=== PATIENT | female | born 1970 | race Two or more races ===

== ENCOUNTER 2018-03-16 05:26 | Inpatient (IN) | payer OTHER ==
[2018-03-01 12:28] LABS: ALANINE AMINOTRANSFERASE 18 U/L (12-78); ALBUMIN 3.6 G/DL (3.4-5.0); ALBUMIN/GLOBULIN RATIO 0.9 (1.0-2.7); ALKALINE PHOSPHATASE 58 U/L (46-116); ANION GAP 5 mmol/L (5-15); ASPARTATE AMINO TRANSFERASE 16 U/L (15-37); BILIRUBIN,TOTAL 0.5 MG/DL (0.2-1.0); BLOOD UREA NITROGEN 13 mg/dL (7-18); CALCIUM 8.5 MG/DL (8.5-10.1); CARBON DIOXIDE 28 MMOL/L (21-32); CHLORIDE 104 MMOL/L (98-107); CREATININE 0.7 MG/DL (0.55-1.30); PHOSPHORUS 3.3 MG/DL (2.5-4.9); POTASSIUM 3.4 MMOL/L (3.5-5.1); SODIUM 137 MMOL/L (136-145)
[2018-03-01 12:40] LABS: BASOPHILS % (AUTO) 0.7 % (0.0-2.0); EOSINOPHILS % (AUTO) 1.7 % (0.0-3.0); HEMOGLOBIN 13.3 G/DL (12.0-16.0); LYMPHOCYTES % (AUTO) 16.8 % (20.0-45.0); MEAN CORPUSCULAR VOLUME 85 FL (80-99); NEUTROPHILS % (AUTO) 74.9 % (45.0-75.0); PLATELET COUNT 376 K/UL (150-450); RED CELL DISTRIBUTION WIDTH 12.4 % (11.6-14.8); WHITE BLOOD COUNT 8.4 K/UL (4.8-10.8)
[2018-03-01 12:47] LABS: APPEARANCE,URINE SLIGHTLY CLOUDY; BILIRUBIN, URINE NEGATIVE (NEGATIVE); GLUCOSE, URINE (UA) NEGATIVE (NEGATIVE); KETONES,URINE NEGATIVE (NEGATIVE); LEUKOCYTE ESTERASE ,URINE 2+ (NEGATIVE); NITRITE,URINE NEGATIVE (NEGATIVE); PH,URINE 5 (4.5-8.0); PROTEIN,URINE 1+ (NEGATIVE); UROBILINOGEN,URINE NORMAL MG/DL (0.0-1.0)
[2018-03-01 12:48] LABS: COLOR,URINE YELLOW
--- NOTE | 2018-03-01 13:07 | Diagnostic Imaging Report ---
Indication: Dyspnea Technique: 2 views of the chest Comparison: Findings: Lungs and pleural spaces are clear. The heart size is normal. There are degenerative changes of the thoracic spine Impression: Negative
[2018-03-16] VITALS (13 sets, daily range): BP systolic 111–132; BP diastolic 55–77
[~2018-03-16] VITALS: Ht 165.1 cm; Wt 88.0 kg
[2018-03-16] MEDS ORDERED: LISINOPRIL40 MG ORAL (06:09)
[2018-03-16] MEDS ORDERED: NORVASC5 MG ORAL (06:09)
[2018-03-16] MEDS ORDERED: LORAZEPAM1 MG ORAL (06:10)
[2018-03-16] MEDS ORDERED: MECLIZINE HCL25 M1 ORAL (06:11)
[2018-03-16] MEDS ORDERED: KENALOG 0.025%15 GM APPLIC (06:12)
[2018-03-16] MEDS ORDERED: ceFAZolin sod 2 GM in D5W 110 ML IVPB ONE (07:00)
[2018-03-16] MEDS ORDERED: Succinylcholine 20mg/ml 10ml vial ONE (07:10)
[2018-03-16] MEDS ORDERED: Zemuron 50mg/5ml Inj IV ONE (07:10)
[2018-03-16] MEDS ORDERED: fentaNYL 100 mcg/2 mL IV ONE (07:17)
[2018-03-16] MEDS ORDERED: Midazolam 2mg/2ml Inj ONE (07:17)
[2018-03-16] MEDS ORDERED: Lidocaine 1% MPF 10mg/ml 5ml ONE (07:24)
[2018-03-16] MEDS ORDERED: Vancomycin 1gm inj IVPB ONE (07:35)
[2018-03-16] MEDS ORDERED: Heparin 5000 units/ml inj ONE (07:35)
[2018-03-16] MEDS ORDERED: EPINEPHrine 1mg/1ml Amp ONE (07:35)
[2018-03-16] MEDS ORDERED: Thrombin 5000 units spray kit TOPIC ONE (07:36)
[2018-03-16] MEDS ORDERED: Lidocaine 1% Plain 30 ml INJ ONE (07:37)
[2018-03-16] MEDS ORDERED: Gelfoam Absorbable 1gm powder pkt TOPIC ONE (07:37)
[2018-03-16] MEDS ORDERED: Ropivacaine 5mg/ml Vial 30ml INJ ONE (07:37)
[2018-03-16] MEDS ORDERED: Gelfoam Size TOPIC ONE (07:37)
[2018-03-16] MEDS ORDERED: Thrombin 5000 units TOPIC ONE (07:37)
[2018-03-16] MEDS ORDERED: Bupivacaine 0.5% Inj 30 ml vial INJ ONE (07:37)
[2018-03-16] MEDS ORDERED: Bacitracin 50000 Units Vial ONE (07:37)
[2018-03-16] MEDS ORDERED: Neostigmine 1mg/ml 10ml Inj ONE (08:00)
[2018-03-16] MEDS ORDERED: LR 1000ml ONE (08:00)
[2018-03-16] MEDS ORDERED: Sterile Water Irrig 1000ml IRRIG ONE (08:00)
[2018-03-16] MEDS ORDERED: Propofol 1,000mg/ 100ml btl IV ONE (08:00)
[2018-03-16] MEDS ORDERED: NS Irrig 1000ml ONE (08:00)
[2018-03-16 08:20] LABS: APPEARANCE,URINE CLEAR; COLOR,URINE YELLOW; GLUCOSE, URINE (UA) NEGATIVE (NEGATIVE); KETONES,URINE NEGATIVE (NEGATIVE); PH,URINE 6 (4.5-8.0); PROTEIN,URINE NEGATIVE (NEGATIVE)
[2018-03-16 08:21] LABS: BILIRUBIN, URINE NEGATIVE (NEGATIVE); LEUKOCYTE ESTERASE ,URINE NEGATIVE (NEGATIVE); NITRITE,URINE NEGATIVE (NEGATIVE); UROBILINOGEN,URINE NORMAL MG/DL (0.0-1.0)
--- NOTE | 2018-03-16 08:46 | Pre-Procedure Note/Attestation ---
Pre-Procedure Note/Attestation Complete Prior to Procedure Procedure Narrative: Anterior/posterior fusion with decompression L5S1 Indications for Procedure Pre-Operative Diagnosis: L5s1 discopathy with radiculopathy Attestation I attest that I discussed the nature of the procedure; its benefits; risks and complications; and alternatives (and the risks and benefits of such alternatives ), prior to the procedure, with the patient (or the patient's legal customer counter representative). I attest that, if there was a reasonable possibility of needing a blood transfusion, the patient (or the patient's legal customer counter representative) was given the [facility] standardized written summary, pursuant to the [place] Blood Safety Act ([place] Health and Safety Code # 1645, as amended). I attest that I re-evaluated the patient just prior to the surgery and that there has been no change in the patient's H&P, except as documented below: Waldemar Ross MD Mar 16, 2018 08:46
--- NOTE | 2018-03-16 08:47 | Brief Operative Note ---
Immediate Post Operative Note Operative Note Pre-op Diagnosis: L5s1 discopathy with radiculopathy Procedure: L5S1 anterior posterior fusion with laminotomy/foraminotomy L side Post-op Diagnosis: same as pre-op Findings: consistent w/pre-op dx studies Surgeon: krishna Additional Surgeons: joey dos santos Anesthesiologist: chico Anesthesia: general Specimen: none Complications: yes Condition: stable Fluids: 1500 Estimated Blood Loss: volume - 150 Drains: hemovac Implant(s) used?: Yes - 4 web and ISP Waldemar Ross MD Mar 16, 2018 08:47
--- NOTE | 2018-03-16 09:10 | Anethesia Preoperative Eval ---
Anesthesia Pre-op PMH/ROS General Date of Evaluation: Mar 16, 2018 Time of Evaluation: 07:50 Anesthesiologist: Sienna ASA Score: ASA 2 Mallampati Score Class I : Soft palate, uvula, fauces, pillars visible Class II: Soft palate, uvula, fauces visible Class III: Soft palate, base of uvula visible Class IV: Only hard plate visible Mallampati Classification: Class II Surgeon: Cody Diagnosis: Lumbar radiculopathy Surgical Procedure: Anterior and posterior lumbar fusion Anesthesia History: none Family History: no anesthesia problems Allergies: Coded Allergies: No Known Allergies (Unverified , 03/16/18) Medications: see eMAR Past Medical History Cardiovascular: Reports: HTN; Denies: CAD, NM, valve dz, arrhythmia, other Pulmonary: Denies: asthma, COPD, ALLAN, other Gastrointestinal/Genitourinary: Reports: GERD; Denies: CRI, ESRD, other Neurologic/Psychiatric: Reports: other - chronic pain; Denies: dementia, CVA, depression/anxiety, TIA Endocrine: Denies: DM, hypothyroidism, steroids, other HEENT: Denies: cataract (L), cataract (R), glaucoma, [place] (L), [place] (R), other Hematology/Immune: Denies: anemia, DVT, bleeding disorder, other Musculoskeletal/Integumentary: Denies: OA, RA, DJD, DDD, edema, other Other: other - ovrweight PMH Narrative: as above PSxH Narrative: C-sector Anesthesia Pre-op Phys. Exam Physician Exam Last Vital Signs Date Time Temp Pulse Resp B/P (MAP) Pulse Ox O2 Delivery O2 Flow Rate FiO2 03/16/18 06:07 Room Air 03/16/18 05:58 97.9 83 18 127/71 (89) 97 97.9 Constitutional: NAD Neurologic: CN 2-12 intact Cardiovascular: RRR, no M/R/G Respiratory: CTA Gastrointestinal: S/NT/ND Airway Exam Mallampati Score: Class II MO: full Neck: flexible ROM: full Teeth: intact Dentures: no upper, no lower Anesthesia Pre-op A/P Labs see chart Urine Test Test 03/16/18 05:40 Urine HCG, Qualitative Negative (NEGATIVE) Studies Pre-op Studies: EKG - NSR Risk Assessment & Plan Assessment: ASA 2 Plan: GA with ETT, neuromonitoring Status Change Before Surgery: No Pre-Antibiotics Drug: Ancef 2 gr. Given Within 1 Hr of Incision: Yes Time Given: 08:46 Zechariah El MD Mar 16, 2018 09:10
[2018-03-16] MEDS ORDERED: Morphine Sulfate 10mg/ml Inj ONE (09:12)
[2018-03-16] MEDS ORDERED: Glycopyrrolate 0.2mg/ml 1ml Vial ONE (09:13)
[2018-03-16] MEDS ORDERED: Sodium Chloride 10ml vial INJ ONE (09:16)
[2018-03-16] MEDS ORDERED: Ketorolac 30mg Inj ONE (10:58)
[2018-03-16] MEDS ORDERED: Propofol 200mg/20ml IV ONE (11:22)
[2018-03-16] MEDS ORDERED: LR 1000ml 1,000 ML IVLG SCH (11:26)
[2018-03-16] MEDS ORDERED: Metoclopramide 10mg/2ml Inj IVP PRN (11:30)
[2018-03-16] MEDS ORDERED: Ketorolac 30mg Inj IV PRN (11:30)
[2018-03-16] MEDS ORDERED: fentaNYL 100 mcg/2 mL IV PRN (11:30)
[2018-03-16] MEDS ORDERED: Meperidine 50mg/ml Inj(FOR RIGORS ONLY) IV PRN (11:30)
[2018-03-16] MEDS ORDERED: DiphenhydrAMINE 50mg/ml Inj IVP PRN (11:30)
[2018-03-16] MEDS ORDERED: Midazolam 2mg/2ml Inj IVP PRN (11:30)
--- NOTE | 2018-03-16 12:57 | Immediate Post-Op Evaluation ---
Immediate Post-Op Evalulation Immediate Post-Op Evalulation Procedure: Anterior and posterior discectomy fusion L5-S1 Date of Evaluation: Mar 16, 2018 Time of Evaluation: 12:56 IV Fluids: 1500 Blood Products: none Estimated Blood Loss: 150 Urinary Output: 150 Blood Pressure Systolic: 117 Blood Pressure Diastolic: 59 Pulse Rate: 81 Respiratory Rate: 20 O2 Sat by Pulse Oximetry: 99 Temperature (Fahrenheit): 97.6 Pain Score (1-10): 1 Nausea: No Vomiting: No Complications none Patient Status: reacts, patent, extubated, none Hydration Status: adequate Zechariah El MD Mar 16, 2018 12:57
[2018-03-16] MEDS ORDERED: Acetaminophen (Non formulary) 100 ML IV ONE (13:00)
[2018-03-16] MEDS ORDERED: Milk of Magnesia 30ml Ud ORAL PRN (13:00)
[2018-03-16] MEDS ORDERED: D5 1/2NS 1,000 ML IV SCH (14:19)
--- NOTE | 2018-03-16 14:45 | Diagnostic Imaging Report ---
Indication: Left lower extremity pain and back pain, intraoperative Technique: Intraoperative images Comparison: none Findings: Initially image demonstrates surgical tool projected anterior to what is presumably the L5-S1 disc. Subsequent images demonstrate disc spacer at L5-S1 as well as anterior fusion hardware. Subsequent images demonstrate interspinous fusion at L5-S1 posteriorly. Impression: Intraoperative imaging, as described
[2018-03-16] MEDS: ceFAZolin sod 1 GM in D5W 55 ML IV SCH (16:56)
[2018-03-16] MEDS: Docusate 100mg cap ORAL SCH (17:06)
--- NOTE | 2018-03-16 17:15 | Operative Note - Dictated ---
DATE OF OPERATION: 03/16/2018 SURGEON: Waldemar Ross M.D. VASCULAR ACCESS SURGEON: Henri Coburn M.D. ANESTHESIOLOGIST: Zechariah El M.D. ANESTHESIA TYPE: General endotracheal anesthesia. PREOPERATIVE DIAGNOSIS: Discopathy L5-S1 with radiculopathy. POSTOPERATIVE DIAGNOSIS: Discopathy L5-S1 with radiculopathy. PROCEDURES: 1. Wide and radical diskectomy anteriorly at L5-S1. 2. Anterior interbody fusion using 4-WEB structural cage. 3. Use of local autograft and Signafuse allograft. 4. Use of fluoroscopy. 5. Neurodiagnostic monitoring. ESTIMATED BLOOD LOSS: 100 mL. COMPLICATIONS: None. FINDINGS: Good overall distraction and fixation at the L5-S1 level. RISK NOTE: The patient was advised of the risks and benefits of surgery to include, but not be limited to those of bleeding, infection, damage to nerves, vessels, tendons, anesthetic risk, allergic reaction, aspiration, and possibly . Pros, cons, risks, and benefits of surgery were discussed inclusive of vascular injury due to prior abdominal surgery and scarring as well as pseudarthrosis and possible need for re-surgery. The patient understood and wished to proceed. INDICATIONS: The patient is a very pleasant 47-year-old with intractable back pain and radiculopathic pain primarily down the left lower extremity. Surgical options were discussed after conservative care failed. She elected to proceed. OPERATIVE PROCEDURE IN DETAIL: The patient was taken to the operative suite after positive identification was made. A Bauman catheter was placed. Anesthesia was induced. She was positioned supine onto a radiolucent table. All bony prominences were well padded. The anterior retroperitoneal approach was performed by Dr. Henri Coburn, vascular surgeon, and this will be dictated separately. At this point, a needle was placed in the L5-S1 level and L5-S1 level was positively identified. A scalpel was then used to incise the anterior anulus. Endplates Levin and endplate curettes were then used to strip and separate the disc from the bony endplate. Interbody spacers were put into place to gradually distract the disk space. A curved curettes, straight curettes, pituitaries, and Kerrison rongeurs were used to remove the posterior osteophytes as well as the remnant disc material. At this point, the appropriate sized 10 mm 6-degree lordotic 4-WEB cage was chosen. It was centrally packed with autograft as well as Signafuse graft manufacturing project engineer. Once the spacer was put into place, x-rays demonstrated good overall distraction of the disk space as well as of the neural foramen with regards to indirect distraction. At this point, a small kickout/buttress plate was applied under fluoroscopic guidance. Once this was secured in place, the vascular structures were released from the retractor and noted to sit properly on the hardware without kinking of the vascular structures. The closure will then be dictated separately by Dr. Coburn. Sponge and needle counts were correct for this portion of the case. Neurodiagnostic monitoring remained stable and diminished both lower extremities, worst right than left. [facility] Wu Ross DR: TAY JOB#: [id number] CC:
--- NOTE | 2018-03-16 17:52 | Internal Med Progress Note ---
Subjective Date of Service: Mar 16, 2018 Physician Name Ike Hernandez Attending Physician Waldemar Ross MD Current Medications Medications (Trade) Dose Ordered Sig/Cleopatra Route PRN Reason Start Time Stop Time Status Last Admin Dose Admin Acetaminophen (Tylenol) 650 mg Q4H PRN ORAL headache or temp>101 03/16/18 13:00 04/15/18 12:59 Cefazolin Sodium 1 gm/Dextrose 55 ml @ 110 mls/hr Q8H IV 03/16/18 17:00 03/17/18 09:29 03/16/18 16:56 Dextrose/Sodium Chloride 1,000 ml @ 100 mls/hr Q10H IV 03/16/18 14:19 04/15/18 14:18 03/16/18 14:46 Docusate Sodium (Colace) 100 mg TWICE A DAY ORAL 03/16/18 18:00 04/15/18 17:59 03/16/18 17:06 Magnesium Hydroxide (Mom) 30 ml QIDPRN PRN ORAL Constipation 03/16/18 13:00 04/15/18 12:59 Ondansetron HCl (Zofran) 4 mg Q6H PRN IVP Nausea & Vomiting 03/16/18 13:00 04/15/18 12:59 Temazepam (Restoril) 15 mg HSPRN PRN ORAL Insomnia 03/16/18 13:00 03/23/18 12:59 Allergies: Coded Allergies: No Known Allergies (Unverified , 03/16/18) ROS Limited/Unobtainable: No Constitutional: Reports: no symptoms HEENT: Reports: no symptoms Cardiovascular: Reports: no symptoms Respiratory: Reports: no symptoms Gastrointestinal/Abdominal: Reports: no symptoms Genitourinary: Reports: no symptoms Neurologic/Psychiatric: Reports: no symptoms Subjective 47 YO F with lumbar Discopathy and radiculopathy. S/P disectomy and fusion L5- S1 on 03/16/18. Cover for Int Marissa Chand Objective Last Vital Signs Date Time Temp Pulse Resp B/P (MAP) Pulse Ox O2 Delivery O2 Flow Rate FiO2 03/16/18 16:45 97.5 64 19 125/70 (88) 100 97.5 03/16/18 14:37 Nasal Cannula 3.0 General Appearance: WD/WN, no apparent distress, alert, obese EENT: PERRL/EOMI, normal ENT inspection, TMs normal Neck: non-tender, normal alignment, supple Cardiovascular: normal peripheral pulses, normal rate, regular rhythm, no gallop/murmur, no JVD Respiratory/Chest: chest wall non-tender, lungs clear, normal breath sounds, no respiratory distress, no accessory muscle use Abdomen: normal bowel sounds, non tender, soft, no organomegaly, no mass Extremities: normal range of motion, non-tender Edema: trace edema Neurologic: radiator specialist II-XII grossly normal, no motor/sensory deficits Skin: normal pigmentation, warm/dry Laboratory Tests Test 03/16/18 05:40 Urine Color Yellow Urine Appearance Clear Urine pH 6 (4.5-8.0) Urine Specific [place] 1.015 (1.005-1.035) Urine Protein Negative (NEGATIVE) Urine Glucose (UA) Negative (NEGATIVE) Urine Ketones Negative (NEGATIVE) Urine Blood Negative (NEGATIVE) Urine Nitrite Negative (NEGATIVE) Urine Bilirubin Negative (NEGATIVE) Urine Urobilinogen Normal MG/DL (0.0-1.0) Urine Leukocyte Esterase Negative (NEGATIVE) Urine RBC 0 /HPF (0 - 2) Urine WBC 0 /HPF (0 - 2) Urine Squamous Epithelial Cells Few /LPF (NONE/OCC) Urine Bacteria Occasional /HPF (NONE) Urine Mucus Few /LPF (NONE/OCC) H Urine HCG, Qualitative Negative (NEGATIVE) Intake and Output 03/15/18 03/16/18 19:00 07:00 # Voids 1 Assessment/Plan Problem List: (1) Lumbar stenosis Assessment & Plan: S/P L5-S1 discectomy and fusion 03/16/18. see surgery note. (2) Radiculopathy of leg (3) HTN (hypertension) Assessment & Plan: Continue amlodipine (4) Obesity (5) Hypokalemia Assessment & Plan: replace potassium Status: not improved Ike Hernandez MD Mar 16, 2018 17:52
[2018-03-16] MEDS ORDERED: D5 1/2NS w/KCl 20mEq 1,000 ML IV SCH (19:00)
[2018-03-16] MEDS ORDERED: Morphine Sulfate 4mg/ml Inj (IV USE ONLY) IM SCH (19:04)
[2018-03-16] MEDS ORDERED: Lisinopril 20mg tab ORAL SCH (19:11)
[2018-03-16] MEDS ORDERED: Meclizine 25mg tab ORAL PRN (19:12)
--- NOTE | 2018-03-16 19:45 | Operative Note - Dictated ---
DATE OF OPERATION: 03/16/2018 SURGEON: Waldemar Ross M.D. PRECINCT POLICE CAPTAIN: None. ANESTHESIOLOGIST: Zechariah El M.D. ANESTHESIA TYPE: General endotracheal anesthesia. PREOPERATIVE DIAGNOSIS: Discopathy L5-S1 with advanced collapse status post anterior fusion with stabilization. POSTOPERATIVE DIAGNOSIS: Discopathy L5-S1 with advanced collapse status post anterior fusion with stabilization. PROCEDURE: 1. Posterior spinal fusion using interspinous stabilization link. 2. Posterior spinal fusion L5-S1 inter-facets and laminar overlay bone graft. 3. Left-sided laminectomy, foraminotomy, and decompression of nerve roots. 4. Use of fluoroscopy. 5. Use of operating microscope. 6. Neurodiagnostic monitoring. 7. Use of local autograft as well as allograft (Signafuse and [place]). ESTIMATED BLOOD LOSS: 50 mL. COMPLICATIONS: None. INDICATIONS: The patient is a pleasant 47-year-old with advanced discopathy and discogenic collapse, L5-S1, left lower extremity radiculopathic pain. She was advised with regards to her alternatives, anterior stabilization and diskectomy was recommended. Due to her body habitus, a posterior decompression and stabilization was recommended. The patient understood and wished to proceed. RISK NOTE: The patient was explained in detail risks, benefits of surgery to include, but not be limited to those of bleeding, infection, damage to nerves, vessels, tendons, anesthetic risk, allergic reaction, aspiration, and possibly . The patient understood specific risk of possible failure of hardware failure or possible need for surgery was discussed. The patient understood and wished to proceed. OPERATIVE PROCEDURE IN DETAIL: Under benefits of general anesthesia, the patient was turned prone onto a radiolucent Jorge frame. AP and lateral projections of lumbar spine confirmed proper positioning of the bone graft and lordosis. At this point, the back was prepped and draped in usual sterile fashion. A needle was placed and was felt to be the L5-S1 level and this was radiographically confirmed. The skin was infiltrated with lidocaine with epinephrine. A midline incision was carried out from L5 through S1. Subperiosteal dissection was carried out. A probe was placed under the lamina of L5 and the levels were once again reconfirmed. At this point, operating microscope was brought into place. The right side was first addressed. The facet was denuded of all soft tissue attachments and decorticated within the facet joint and overlying tissues. Local autograft bone as well as bone graft allograft substitute was placed within the facet joint. At this area, this right side was packed off. Attention was turned to the left side. Hemilaminectomy was performed at L5 and medial facetectomy at L5-S1. The ligamentum flavum was removed in a piecemeal fashion. The procedure was performed using standard technique by drilling out the lamina as well as using rongeurs as well as angled curettes. Once the ligamentum flavum was removed in a piecemeal fashion, the dural sac was identified. Generous facetectomy was performed. Meticulous hemostasis was then performed using bipolar. FloSeal was applied. At this point, the interspinous ligament between L5-S1 was removed and the edges of the spinous process was denuded of all soft tissue and decortication was achieved. An 8 mm interspinous L5-S1 StabiLink device was chosen and this was deployed within the interspinous region and clamped down and secured to the appropriate level. Please note that prior to placement of the device, copious irrigation was performed and meticulous hemostasis on the left was achieved using FloSeal. On the right side, decortication of the lamina was achieved. The local bone graft from the laminectomy was then mixed with Signafuse as well as some graft on and placed as an onlay onto the interlaminar region on the right side. The StabiLink device was deployed and secured to the spinous processes of L5 and S1 under microscopic visualization. It was then manually tightened and locked into place. Additional bone graft was placed within the ISP device. Fluoroscopic images confirmed good overall positioning of the ISP fusion device in both AP and lateral projections. Decision was then made to close. Fascia was repaired using #1 Vicryl. Subcutaneous closure using 2-0 Vicryl. Subfascial Hemovac drain was placed. Dermabond was applied. Sterile dressing was applied. The patient was then turned onto her back, awakened, extubated, and transferred to recovery room in stable condition. Sponge and needle counts were correct. Waldemar Ross M.D. DR: LAMIN JOB#: [id number] CC: MORAIMA
[2018-03-16] MEDS: LORazepam 0.5mg tab ORAL PRN (20:13)
[2018-03-16] MEDS: Triamcinolone 0.1% 15gm Cr TOPIC SCH (20:14)
[2018-03-16] MEDS: Lisinopril 20mg tab ORAL SCH (20:15)
--- NOTE | 2018-03-16 20:15 | Operative Note - Dictated ---
DATE OF OPERATION: 03/16/2018 VASCULAR SURGEON: Henri Coburn M.D. SPINE SURGEON: Waldemar Ross M.D. PREOPERATIVE DIAGNOSIS: Degenerative disk disease. POSTOPERATIVE DIAGNOSIS: Degenerative disk disease. PROCEDURE PERFORMED: Anterior retroperitoneal exposure of L5-S1 vertebral interspace. INDICATIONS: The patient is a very pleasant woman who is in my office prior to surgery. 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 She has no history of anterior spine surgery. No history of deep venous thrombosis or bleeding complications. She was made aware of the risks of surgery including possibly vascular injury, possible need for blood transfusion, and deep venous thrombosis. DESCRIPTION OF FINDINGS: A prior transverse incision was used. A left retroperitoneal approach was used. There was no peritoneal or ureteral violation. There is no vascular injury. Exposure of L5-S1 was obtained below the iliac bifurcation with retraction of left common iliac vessels superior and laterally. Fluoroscopy used to confirm appropriate level. Upon completion, the peritoneum and ureter were intact. The iliac vessels were intact. The blood loss was less than 100 mL . The patient has palpable femoral and pedal pulses and pulse oximetry and neurologic monitoring normal throughout the case. DESCRIPTION OF PROCEDURE: The patient was taken operating room. General anesthesia was used. Intravenous antibiotics were given. The patient's abdomen was prepped and draped. Appropriate time-out for procedure taken. A previous transverse incision was opened transversely superiorly. The anterior fascia was incised longitudinally in the midline. A plane was identified posterior to the left rectus abdominis developed posterolaterally towards the patient left. The retroperitoneal space entered below the arcuate line and the peritoneum and ureter mobilized towards the patient's right exposing the left common iliac artery and vein. Dissection was carried on the undersurface of the left common iliac vein. The middle sacral artery and vein were ligated using bipolar electrocautery and divided. There is a large internal iliac vein was identified and it was encircled using a 2-0 silk tie and triply ligated proximally distally with vascular clips. On completion, the retractors then removed. The peritoneum and ureter were intact. The iliac vessels are intact. Anterior fascia was then closed with #1 PDS in a running fashion and the skin and subcutaneous tissue were closed with 3-0 Vicryl and 4-0 Monocryl running subcuticular closure technique. Estimated blood loss less than 100 mL. Complications none. Henri Coburn M.D. DR: INGE JOB#: [id number] CC:
[2018-03-16] MEDS: Morphine Sulfate 4mg/ml Inj (IV USE ONLY) IM PRN (22:18)
[2018-03-17] VITALS: BP 118/71
[2018-03-17] MEDS: ceFAZolin sod 1 GM in D5W 55 ML IV SCH ×2 (00:33→08:57)
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
[2018-03-17] MEDS: D5 1/2NS w/KCl 20mEq 1,000 ML IV SCH ×4 (01:41→22:00)
[2018-03-17] MEDS: Morphine Sulfate 4mg/ml Inj (IV USE ONLY) IM PRN ×7 (03:01→21:16)
[2018-03-17 04:00] VITALS: BP 124/72
[2018-03-17 06:38] LABS: BASOPHILS % (AUTO) 0.3 % (0.0-2.0); EOSINOPHILS % (AUTO) 0.1 % (0.0-3.0); HEMATOCRIT 35.3 % (37.0-47.0); HEMOGLOBIN 11.5 G/DL (12.0-16.0); LYMPHOCYTES % (AUTO) 7.8 % (20.0-45.0); MEAN CORPUSCULAR VOLUME 86 FL (80-99); MONOCYTES % (AUTO) 7.1 % (1.0-10.0); NEUTROPHILS % (AUTO) 84.7 % (45.0-75.0); PLATELET COUNT 237 K/UL (150-450); RED BLOOD COUNT 4.09 M/UL (4.20-5.40); RED CELL DISTRIBUTION WIDTH 12.6 % (11.6-14.8); WHITE BLOOD COUNT 8.3 K/UL (4.8-10.8)
[2018-03-17 06:51] LABS: ANION GAP 6 mmol/L (5-15); BLOOD UREA NITROGEN 9 mg/dL (7-18); CALCIUM 8.1 MG/DL (8.5-10.1); CARBON DIOXIDE 29 MMOL/L (21-32); CHLORIDE 102 MMOL/L (98-107); CREATININE 0.8 MG/DL (0.55-1.30); POTASSIUM 4.5 MMOL/L (3.5-5.1); SODIUM 137 MMOL/L (136-145)
[2018-03-17 07:50] VITALS: BP 127/79
[2018-03-17] MEDS: Docusate 100mg cap ORAL SCH ×2 (08:08→18:01)
[2018-03-17] MEDS: Lisinopril 20mg tab ORAL SCH ×2 (08:09→16:55)
--- NOTE | 2018-03-17 08:28 | Orthopedic Spine Progress Note ---
Ortho Spine - Progress Note Subjective Symptoms: c/o post-op back pain, improved - leg symptoms resolved Objective Vital Signs: Last 24 Hour Vital Signs Date Time Temp Pulse Resp B/P (MAP) Pulse Ox O2 Delivery O2 Flow Rate FiO2 03/17/18 08:09 127/79 03/17/18 08:09 93 127/79 03/17/18 07:50 99.4 93 18 127/79 (95) 100 99.4 03/17/18 07:47 Nasal Cannula 2.0 03/17/18 04:00 99.0 87 18 124/72 (89) 100 99.0 03/17/18 00:00 98.7 81 18 118/71 (87) 98 98.7 03/16/18 21:00 Nasal Cannula 3.0 03/16/18 20:15 124/77 03/16/18 20:00 98.1 81 18 124/77 (93) 100 98.1 03/16/18 16:45 97.5 64 19 125/70 (88) 100 97.5 03/16/18 15:00 96.7 81 20 121/74 (90) 99 96.7 03/16/18 14:37 Nasal Cannula 3.0 03/16/18 14:00 97.6 73 18 111/56 (74) 98 97.6 03/16/18 14:00 Nasal Cannula 3.0 03/16/18 13:49 97.2 66 18 114/59 100 Nasal Cannula 3 97.2 03/16/18 13:30 64 19 111/55 100 Nasal Cannula 3 03/16/18 13:20 64 21 124/69 100 Nasal Cannula 3 03/16/18 13:18 97.6 03/16/18 13:10 65 18 127/65 100 Nasal Cannula 3 03/16/18 13:00 68 16 121/69 100 Simple Mask 6 03/16/18 12:57 207.7 81 20 99 03/16/18 12:55 72 13 132/56 100 Simple Mask 6 03/16/18 12:50 79 15 117/59 100 Simple Mask 6 03/16/18 12:44 97.6 82 20 112/57 100 Simple Mask 6 97.6 I&O: Intake and Output 03/16/18 03/17/18 19:00 07:00 Intake Total 1955 ml 805 ml Output Total 550 ml 470 ml Balance 1405 ml 335 ml Intake Oral 0 ml IV Total 1955 ml 805 ml Output Urine Total 400 ml 450 ml Drainage Total 0 ml 20 ml Estimated Blood Loss 150 ml Wound: clean, intact Drains: hemovac Neuro Status: normal Assessment Procedure Performed: L5S1 anterior posterior fusion with laminotomy/foraminotomy L side Plan Plan: PT, pain management, d/c drain Additional Comments: keep npo-- no Waldemar Mcallister MD Mar 17, 2018 08:28
[2018-03-17] MEDS: Triamcinolone 0.1% 15gm Cr TOPIC SCH ×2 (08:54→16:55)
[2018-03-17] MEDS ORDERED: Lisinopril 20mg tab ORAL SCH (09:00)
--- NOTE | 2018-03-17 10:49 | Internal Med Progress Note ---
Subjective Date of Service: Mar 17, 2018 Physician Name HernandezIke baptiste Attending Physician Waldemar Ross MD Current Medications Medications (Trade) Dose Ordered Sig/Cleopatra Route PRN Reason Start Time Stop Time Status Last Admin Dose Admin Acetaminophen (Tylenol) 650 mg Q4H PRN ORAL headache or temp>101 03/16/18 13:00 04/15/18 12:59 Acetaminophen/ Hydrocodone Bitart ([place] 10/325) 1 tab Q3H PRN ORAL Pain Scale (3-5) 03/16/18 19:15 03/23/18 19:14 Al Hydroxide/Mg Hydroxide (Mylanta) 30 ml Q6H PRN ORAL gerd 03/16/18 19:15 04/15/18 19:14 Amlodipine Besylate (Norvasc) 5 mg DAILY ORAL 03/17/18 09:00 04/16/18 08:59 03/17/18 08:09 Dextrose/ Electrolytes 1,000 ml @ 150 mls/hr Q6H40M IV 03/17/18 01:30 04/16/18 01:29 03/17/18 08:10 Diphenhydramine HCl (Benadryl) 25 mg Q6H PRN ORAL Itching 03/16/18 19:15 04/15/18 19:14 Docusate Sodium (Colace) 100 mg TWICE A DAY ORAL 03/16/18 18:00 04/15/18 17:59 03/17/18 08:08 Lisinopril (Prinivil) 20 mg BID ORAL 03/16/18 19:11 04/15/18 19:10 03/16/18 20:15 Lorazepam (Ativan) 0.5 mg Q6H PRN ORAL INSOMNIA OR SPASM 03/16/18 19:12 03/23/18 19:11 03/16/18 20:13 Meclizine HCl (Antivert) 25 mg Q8H PRN ORAL VERTIGO 03/16/18 19:12 04/15/18 19:11 Morphine Sulfate (Morphine Sulfate) 4 mg Q3H PRN IM Severe Breakthru Pain (>7) 03/16/18 19:04 03/23/18 19:03 03/17/18 09:25 Ondansetron HCl (Zofran) 4 mg Q4H PRN IVP Nausea & Vomiting 03/16/18 19:10 04/15/18 19:09 03/17/18 08:54 Pantoprazole (Protonix) 40 mg BEDTIME ORAL 03/16/18 21:00 04/15/18 20:59 03/16/18 20:13 Triamcinolone Acetonide (Kenalog) 1 applic BID TOPIC 03/16/18 19:29 04/15/18 19:28 03/17/18 08:54 Allergies: Coded Allergies: No Known Allergies (Unverified , 03/16/18) ROS Limited/Unobtainable: No Constitutional: Reports: no symptoms HEENT: Reports: no symptoms Cardiovascular: Reports: no symptoms Respiratory: Reports: no symptoms Gastrointestinal/Abdominal: Reports: no symptoms Genitourinary: Reports: no symptoms Neurologic/Psychiatric: Reports: no symptoms Subjective 47 YO F with lumbar Discopathy and radiculopathy. S/P disectomy and fusion L5- S1 on 03/16/18. Cover for Int John Paul-Dr Chand Objective Last Vital Signs Date Time Temp Pulse Resp B/P (MAP) Pulse Ox O2 Delivery O2 Flow Rate FiO2 03/17/18 09:55 99.4 03/17/18 08:09 127/79 03/17/18 08:09 93 03/17/18 07:50 18 100 03/17/18 07:47 Nasal Cannula 2.0 Laboratory Tests Test 03/17/18 05:55 White Blood Count 8.3 K/UL (4.8-10.8) Red Blood Count 4.09 M/UL (4.20-5.40) L Hemoglobin 11.5 G/DL (12.0-16.0) L Hematocrit 35.3 % (37.0-47.0) L Mean Corpuscular Volume 86 FL (80-99) Mean Corpuscular Hemoglobin 28.0 PG (27.0-31.0) Mean Corpuscular Hemoglobin Concent 32.5 G/DL (32.0-36.0) Red Cell Distribution Width 12.6 % (11.6-14.8) Platelet Count 237 K/UL (150-450) Mean Platelet Volume 6.2 FL (6.5-10.1) L Neutrophils (%) (Auto) 84.7 % (45.0-75.0) H Lymphocytes (%) (Auto) 7.8 % (20.0-45.0) L Monocytes (%) (Auto) 7.1 % (1.0-10.0) Eosinophils (%) (Auto) 0.1 % (0.0-3.0) Basophils (%) (Auto) 0.3 % (0.0-2.0) Sodium Level 137 MMOL/L (136-145) Potassium Level 4.5 MMOL/L (3.5-5.1) Chloride Level 102 MMOL/L (98-107) Carbon Dioxide Level 29 MMOL/L (21-32) Anion Gap 6 mmol/L (5-15) Blood Urea Nitrogen 9 mg/dL (7-18) Creatinine 0.8 MG/DL (0.55-1.30) Estimat Glomerular Filtration Rate > 60 mL/min (>60) Glucose Level 171 MG/DL (74-106) H Calcium Level 8.1 MG/DL (8.5-10.1) L Intake and Output 03/16/18 03/17/18 19:00 07:00 Intake Total 1955 ml 805 ml Output Total 550 ml 470 ml Balance 1405 ml 335 ml Intake Oral 0 ml IV Total 1955 ml 805 ml Output Urine Total 400 ml 450 ml Drainage Total 0 ml 20 ml Estimated Blood Loss 150 ml Objective General Appearance: WD/WN, no apparent distress, alert, obese EENT: PERRL/EOMI, normal ENT inspection, TMs normal Neck: non-tender, normal alignment, supple Cardiovascular: normal peripheral pulses, normal rate, regular rhythm, no gallop/murmur, no JVD Respiratory/Chest: chest wall non-tender, lungs clear, normal breath sounds, no respiratory distress, no accessory muscle use Abdomen: normal bowel sounds, non tender, soft, no organomegaly, no mass Extremities: normal range of motion, non-tender Edema: trace edema Neurologic: data solutions architect II-XII grossly normal, no motor/sensory deficits Skin: normal pigmentation, warm/dry Assessment/Plan Problem List: (1) Lumbar stenosis Assessment & Plan: S/P L5-S1 discectomy and fusion 03/16/18. see surgery note. (2) Radiculopathy of leg (3) HTN (hypertension) Assessment & Plan: Continue amlodipine (4) Obesity (5) Hypokalemia Assessment & Plan: Resolved. Continue IV fluids Status: progressing Assessment/Plan Discharge planning Ike Hernandez MD Mar 17, 2018 10:49
--- NOTE | 2018-03-17 11:13 | 48 Hour Post Anesthesia Eval ---
Post Anesthesia Evaluation Procedure: Anterior and posterior discectomy fusion L5-S1 Date of Evaluation: Mar 17, 2018 Time of Evaluation: 07:00 Blood Pressure Systolic: 124 0: 72 Pulse Rate: 87 Respiratory Rate: 18 Temperature (Fahrenheit): 99 O2 Sat by Pulse Oximetry: 100 Airway: patent Nausea: No Vomiting: No Pain Intensity: 0 Hydration Status: adequate Cardiopulmonary Status: at baseline Mental Status/LOC: patient returned to baseline Post-Anesthesia Complications: 0 Follow-up care needed: N/A - further care as per primary team Lorenza Mcnair MD Mar 17, 2018 11:13
[2018-03-17 11:42] VITALS: BP 96/51
[2018-03-17 15:51] VITALS: BP 110/70
[2018-03-17] MEDS ORDERED: D5 1/2NS w/KCl 20mEq 1,000 ML IV SCH (19:00)
[2018-03-17 20:00] VITALS: BP 105/70
--- NOTE | 2018-03-17 20:45 | Progress Note ---
DATE: 03/17/2018 ACUTE PAIN MANAGEMENT PHYSICIAN PROGRESS NOTE MEDICATIONS: Medication administration record reviewed. Medications include IV fluids, Colace, Protonix, Prinivil, triamcinolone eczema cream, and Norvasc. P.r.n. medications include Tylenol, morphine, Zofran, Benadryl, [place], Mylanta, Ativan and meclizine. LABORATORY STUDIES: From this morning, 03/17/2018, postoperative day #1 shows sodium 137, potassium 4.5, chloride 102, bicarbonate 29, BUN 9, creatinine 0.8 and glucose 171. Calcium 8.1. White count 8, hematocrit 35 and platelets 237. OBJECTIVE: VITAL SIGNS: Pain level 6/10 on the visual analog pain scale. Afebrile, pulse 88, respirations 18, and blood pressure 96/61. I spent over 60 minutes in consultation today. I saw the patient at bedside with her sister and son. Dr. Ross evaluated the patient earlier this morning and was pleased with the patient's progress after her extensive lumbar spine fusion surgery. The patient did ambulate greater than 300 feet with a front wheel walker with physical therapy today. She is in good spirits. She does have mild nausea and will remain NPO except for medications and sips, as she still has not yet passing flatus. She does have positive bowel sounds, but is not yet burping. I do have a high volume IV fluids 150 mL an hour for good hydration is a 47-year-old woman with no underlying cardiac disease. I will continue this fluid rate for now. Dr. Hernandez is following the patient's blood pressure and Internal Medicine issues. The patient has been compliant using her incentive spirometer. Postoperative hematocrit is within normal limits. The intramuscular morphine seems to be working adequately. I will continue the dosing q.3 h. p.r.n. Once the patient does start advancing her diet, she will work-in the oral hydrocodone tablets as tolerated. I also have dose of p.r.n. Ativan available, which the patient can use p.r.n. for spasm or insomnia. The output from the Hemovac drain was only 20 mL overnight. With nurse RNVioletta at the bedside, the patient was moved to the left lateral decubitus position. I examined the lumbar spine wound showing the dressing clean and dry. I removed the dressing bandage showing the incision line clean and dry with no evidence for erythema or exudate. The drain site also was clean and dry with the Hemovac drain taken off of suction, end-expiration, I personally removed the indwelling lumbar spine drain catheter. The tip was intact. I applied alcohol swab to the drain hole site. Finally, a sterile gauze was applied over the drain hole site covered by a 3 x 3 island border gauze dressing. The entire site was then covered with a 6 x 6 island border gauze dressing. There were no complications. Jd Riley M.D. DR: MONICA JOB#: [id number] CC:
[2018-03-18] VITALS: BP 108/65
[2018-03-18] MEDS: D5 1/2NS w/KCl 20mEq 1,000 ML IV SCH ×4 (00:23→18:38)
[2018-03-18] MEDS: Morphine Sulfate 4mg/ml Inj (IV USE ONLY) IM PRN ×3 (00:31→12:01)
[2018-03-18 04:00] VITALS: BP 107/66
[2018-03-18] MEDS: HYDROcodone/Acetamin 10/325 tab ORAL PRN ×4 (04:31→19:51)
[2018-03-18 07:28] LABS: BASOPHILS % (AUTO) 0.6 % (0.0-2.0); EOSINOPHILS % (AUTO) 0.6 % (0.0-3.0); HEMATOCRIT 31.7 % (37.0-47.0); HEMOGLOBIN 10.5 G/DL (12.0-16.0); LYMPHOCYTES % (AUTO) 8.5 % (20.0-45.0); MEAN CORPUSCULAR VOLUME 85 FL (80-99); MONOCYTES % (AUTO) 8.7 % (1.0-10.0); NEUTROPHILS % (AUTO) 81.6 % (45.0-75.0); PLATELET COUNT 192 K/UL (150-450); RED BLOOD COUNT 3.72 M/UL (4.20-5.40); RED CELL DISTRIBUTION WIDTH 12.6 % (11.6-14.8); WHITE BLOOD COUNT 9.1 K/UL (4.8-10.8)
[2018-03-18 07:49] LABS: ANION GAP 5 mmol/L (5-15); BLOOD UREA NITROGEN 6 mg/dL (7-18); CALCIUM 8.3 MG/DL (8.5-10.1); CARBON DIOXIDE 27 MMOL/L (21-32); CHLORIDE 104 MMOL/L (98-107); CREATININE 0.6 MG/DL (0.55-1.30); POTASSIUM 3.6 MMOL/L (3.5-5.1); SODIUM 136 MMOL/L (136-145)
[2018-03-18 08:00] VITALS: BP 115/59
[2018-03-18] MEDS: Docusate 100mg cap ORAL SCH ×2 (08:20→18:22)
[2018-03-18] MEDS: Lisinopril 20mg tab ORAL SCH ×2 (08:24→18:00)
--- NOTE | 2018-03-18 08:25 | Orthopedic Spine Progress Note ---
Ortho Spine - Progress Note Subjective Symptoms: c/o post-op back pain, c/o left leg pain - post thigh burning sensation Objective Vital Signs: Last 24 Hour Vital Signs Date Time Temp Pulse Resp B/P (MAP) Pulse Ox O2 Delivery O2 Flow Rate FiO2 03/18/18 08:00 98.5 95 18 115/59 (77) 98 98.5 03/18/18 08:00 98.5 95 18 115/59 (77) 98 98.5 03/18/18 04:00 98.6 93 18 107/66 (80) 98 98.6 03/18/18 02:30 98.0 03/18/18 00:36 100.8 03/18/18 00:00 100.3 101 18 108/65 (79) 98 100.3 03/17/18 21:00 Room Air 03/17/18 20:36 100 Nasal Cannula 2.0 03/17/18 20:36 Nasal Cannula 2.0 03/17/18 20:00 98.9 112 18 105/70 (82) 98 98.9 03/17/18 18:30 98.3 03/17/18 18:00 98.3 03/17/18 15:51 98.3 98 18 110/70 (83) 100 98.3 03/17/18 15:07 97.5 03/17/18 12:13 97.5 03/17/18 11:42 97.5 88 18 96/51 (66) 99 97.5 03/17/18 11:13 210.2 87 18 100 03/17/18 09:25 99.4 I&O: Intake and Output 03/17/18 03/18/18 19:00 07:00 Intake Total 1500 ml 437.5 ml Output Total 10 ml Balance 1490 ml 437.5 ml IV Total 1500 ml 437.5 ml Drainage Total 10 ml # Voids 2 4 Wound: clean, intact Drains: none Neuro Status: normal Assessment Procedure Performed: L5S1 anterior posterior fusion with laminotomy/foraminotomy L side Plan Plan: PT, pain management Additional Comments: advance diet Waldemar Ross MD Mar 18, 2018 08:25
[2018-03-18] MEDS: Triamcinolone 0.1% 15gm Cr TOPIC SCH ×2 (08:26→18:22)
[2018-03-18 12:00] VITALS: BP 141/95
--- NOTE | 2018-03-18 12:19 | Diagnostic Imaging Report ---
. Indication: Cough Technique: One view of the chest Comparison: 03/01/2018 Findings: Lungs and pleural spaces are clear. Heart size is normal Impression: No acute process
[2018-03-18] MEDS: cefTRIAXone 1 GM in D5W 55 ML IVPB SCH (13:47)
[2018-03-18 15:27] LABS: APPEARANCE,URINE CLEAR; BILIRUBIN, URINE NEGATIVE (NEGATIVE); COLOR,URINE PALE YELLOW; GLUCOSE, URINE (UA) NEGATIVE (NEGATIVE); KETONES,URINE NEGATIVE (NEGATIVE); LEUKOCYTE ESTERASE ,URINE NEGATIVE (NEGATIVE); NITRITE,URINE NEGATIVE (NEGATIVE); PH,URINE 6.5 (4.5-8.0); PROTEIN,URINE NEGATIVE (NEGATIVE); UROBILINOGEN,URINE NORMAL MG/DL (0.0-1.0)
[2018-03-18 16:00] VITALS: BP 131/68
--- NOTE | 2018-03-18 16:15 | Progress Note ---
DATE: 03/18/2018 ACUTE PAIN MANAGEMENT PHYSICIAN PROGRESS NOTE MEDICATIONS: Medication administration record reviewed. Medications include IV fluids, Colace, Protonix, lisinopril Kenalog cream, and Norvasc. P.r.n. medications include Tylenol, morphine, Zofran, Benadryl, Kerrick, Mylanta, Ativan and meclizine. LABORATORY STUDIES: From yesterday, 03/17/2018 shows white count 8, hematocrit 35 and platelets 237. Urinalysis from 03/16/2018 is negative. Chemistry from 03/17/2018 shows sodium 137, potassium 4.5, chloride 102, bicarbonate 29, BUN 9, creatinine 0.8 and glucose 171. Calcium 8.1. OBJECTIVE: VITAL SIGNS: Pain level 5/10 on the visual analog pain scale. T-max overnight was 100.8 degrees, current temperature afebrile, pulse 93, respirations 18, blood pressure 107/66 and oxygen saturation 98%. I spent over 60 minutes in consultation today. I saw the patient at bedside with her daughter after discussion with the nurse RN, Matty. I discussed the case with the Surgeon, Dr. Ross. The patient has been voiding urine well after the Bauman catheter was removed. There was some trace blood in the urine. However, this is likely secondary traumatic from the previous Bauman catheter insertion, the recent urinalysis was clean and negative. The patient did have a low-grade fever overnight. This is likely contributed with postoperative atelectasis. I did encourage continued incentive spirometer usage, as she does weigh 88 kg. The patient has been walking aggressively, resultingly her bowel function is returning somewhat. She started to burp, but still has not yet passed flatus. She will continue on IV fluids at 125 mL an hour, She will continue with her diet of NPO except for medications for now. Hopefully, she will start passing flatus so we can advance her diet. The patient continued to be quite hungry and denies any nausea symptoms at this time. The son did obtain my prescription for Kerrick for outpatient usage and he will try to locate a pharmacy to dispense the medicine in the outpatient setting. Jd Riley M.D. DR: MONICA JOB#: [id number] CC:
--- NOTE | 2018-03-18 19:26 | Internal Med Progress Note ---
Subjective Date of Service: Mar 18, 2018 Physician Name Ike Hernandez Attending Physician Waldemar Ross MD Current Medications Medications (Trade) Dose Ordered Sig/Cleopatra Route PRN Reason Start Time Stop Time Status Last Admin Dose Admin Acetaminophen (Tylenol) 650 mg Q4H PRN ORAL headache or temp>101 03/16/18 13:00 04/15/18 12:59 03/18/18 10:19 Acetaminophen/ Hydrocodone Bitart ([place] 10/325) 1 tab Q3H PRN ORAL Pain Scale (3-5) 03/16/18 19:15 03/23/18 19:14 03/18/18 16:26 Al Hydroxide/Mg Hydroxide (Mylanta) 30 ml Q6H PRN ORAL gerd 03/16/18 19:15 04/15/18 19:14 03/18/18 18:23 Amlodipine Besylate (Norvasc) 5 mg DAILY ORAL 03/17/18 09:00 04/16/18 08:59 03/17/18 08:09 Ceftriaxone Sodium 1 gm/ Dextrose 55 ml @ 110 mls/hr DAILY IVPB 03/18/18 13:00 03/25/18 12:59 03/18/18 13:47 Dextrose/ Electrolytes 1,000 ml @ 125 mls/hr Q8H IV 03/18/18 00:15 04/16/18 01:29 03/18/18 18:38 Diphenhydramine HCl (Benadryl) 25 mg Q6H PRN ORAL Itching 03/16/18 19:15 04/15/18 19:14 Docusate Sodium (Colace) 100 mg TWICE A DAY ORAL 03/16/18 18:00 04/15/18 17:59 03/18/18 18:22 Lisinopril (Prinivil) 20 mg BID ORAL 03/16/18 19:11 04/15/18 19:10 03/16/18 20:15 Lorazepam (Ativan) 0.5 mg Q6H PRN ORAL INSOMNIA OR SPASM 03/16/18 19:12 03/23/18 19:11 03/16/18 20:13 Meclizine HCl (Antivert) 25 mg Q8H PRN ORAL VERTIGO 03/16/18 19:12 04/15/18 19:11 Morphine Sulfate (Morphine Sulfate) 4 mg Q3H PRN IM Severe Breakthru Pain (>7) 03/16/18 19:04 03/23/18 19:03 03/18/18 12:01 Ondansetron HCl (Zofran) 4 mg Q4H PRN IVP Nausea & Vomiting 03/16/18 19:10 04/15/18 19:09 03/17/18 08:54 Pantoprazole (Protonix) 40 mg BEDTIME ORAL 03/16/18 21:00 04/15/18 20:59 03/17/18 21:13 Triamcinolone Acetonide (Kenalog) 1 applic BID TOPIC 03/16/18 19:29 04/15/18 19:28 03/18/18 18:22 Allergies: Coded Allergies: No Known Allergies (Unverified , 03/16/18) ROS Limited/Unobtainable: No Constitutional: Reports: chills, fever HEENT: Reports: no symptoms Cardiovascular: Reports: no symptoms Respiratory: Reports: no symptoms Gastrointestinal/Abdominal: Reports: no symptoms Genitourinary: Reports: no symptoms Neurologic/Psychiatric: Reports: no symptoms Subjective 47 YO F with lumbar Discopathy and radiculopathy. S/P disectomy and fusion L5- S1 on 03/16/18. Cover for Int Med-Dr Chand. Fever earlier today; currently afebrile. Objective Last Vital Signs Date Time Temp Pulse Resp B/P (MAP) Pulse Ox O2 Delivery O2 Flow Rate FiO2 03/18/18 18:00 130/74 03/18/18 16:00 97.4 90 18 68 97.4 03/18/18 08:48 Room Air 03/17/18 20:36 2.0 Laboratory Tests Test 03/18/18 06:23 03/18/18 13:30 White Blood Count 9.1 K/UL (4.8-10.8) Red Blood Count 3.72 M/UL (4.20-5.40) L Hemoglobin 10.5 G/DL (12.0-16.0) L Hematocrit 31.7 % (37.0-47.0) L Mean Corpuscular Volume 85 FL (80-99) Mean Corpuscular Hemoglobin 28.2 PG (27.0-31.0) Mean Corpuscular Hemoglobin Concent 33.1 G/DL (32.0-36.0) Red Cell Distribution Width 12.6 % (11.6-14.8) Platelet Count 192 K/UL (150-450) Mean Platelet Volume 6.6 FL (6.5-10.1) Neutrophils (%) (Auto) 81.6 % (45.0-75.0) H Lymphocytes (%) (Auto) 8.5 % (20.0-45.0) L Monocytes (%) (Auto) 8.7 % (1.0-10.0) Eosinophils (%) (Auto) 0.6 % (0.0-3.0) Basophils (%) (Auto) 0.6 % (0.0-2.0) Sodium Level 136 MMOL/L (136-145) Potassium Level 3.6 MMOL/L (3.5-5.1) Chloride Level 104 MMOL/L (98-107) Carbon Dioxide Level 27 MMOL/L (21-32) Anion Gap 5 mmol/L (5-15) Blood Urea Nitrogen 6 mg/dL (7-18) L Creatinine 0.6 MG/DL (0.55-1.30) Estimat Glomerular Filtration Rate > 60 mL/min (>60) Glucose Level 131 MG/DL (74-106) H Calcium Level 8.3 MG/DL (8.5-10.1) L Urine Color Pale yellow Urine Appearance Clear Urine pH 6.5 (4.5-8.0) Urine Specific Sneads 1.005 (1.005-1.035) Urine Protein Negative (NEGATIVE) Urine Glucose (UA) Negative (NEGATIVE) Urine Ketones Negative (NEGATIVE) Urine Blood 5+ (NEGATIVE) H Urine Nitrite Negative (NEGATIVE) Urine Bilirubin Negative (NEGATIVE) Urine Urobilinogen Normal MG/DL (0.0-1.0) Urine Leukocyte Esterase Negative (NEGATIVE) Urine RBC 0-2 /HPF (0 - 2) Urine WBC 0-2 /HPF (0 - 2) Urine Squamous Epithelial Cells Moderate /LPF (NONE/OCC) H Urine Bacteria Occasional /HPF (NONE) Microbiology Date/Time Source Procedure Growth Status 03/16/18 06:29 Nasal Nares MRSA Culture - Final NO METHICILLIN RESISTANT STAPH AUREUS... Complete Intake and Output 03/17/18 03/18/18 19:00 07:00 Intake Total 1500 ml 437.5 ml Output Total 10 ml Balance 1490 ml 437.5 ml IV Total 1500 ml 437.5 ml Drainage Total 10 ml # Voids 2 4 Objective General Appearance: WD/WN, no apparent distress, alert, obese EENT: PERRL/EOMI, normal ENT inspection, TMs normal Neck: non-tender, normal alignment, supple Cardiovascular: normal peripheral pulses, normal rate, regular rhythm, no gallop/murmur, no JVD Respiratory/Chest: chest wall non-tender, lungs clear, normal breath sounds, no respiratory distress, no accessory muscle use Abdomen: normal bowel sounds, non tender, soft, no organomegaly, no mass Extremities: normal range of motion, non-tender Edema: trace edema Neurologic: tin flopper II-XII grossly normal, no motor/sensory deficits Skin: normal pigmentation, warm/dry Assessment/Plan Problem List: (1) Lumbar stenosis Assessment & Plan: S/P L5-S1 discectomy and fusion 03/16/18. see surgery note. (2) Radiculopathy of leg (3) HTN (hypertension) Assessment & Plan: Continue amlodipine (4) Obesity (5) Hypokalemia Assessment & Plan: Resolved. 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 Start ceftriaxone. Status: not improved Assessment/Plan Discharge planning Ike Hernandez MD Mar 18, 2018 19:26
[2018-03-18 20:00] VITALS: BP 140/73
[2018-03-18] MEDS: LORazepam 0.5mg tab ORAL PRN (23:57)
[2018-03-19] VITALS: BP 114/71
[2018-03-19 04:00] VITALS: BP 110/76
[2018-03-19 07:48] LABS: BASOPHILS % (AUTO) 0.5 % (0.0-2.0); EOSINOPHILS % (AUTO) 1.9 % (0.0-3.0); HEMATOCRIT 31.8 % (37.0-47.0); HEMOGLOBIN 10.7 G/DL (12.0-16.0); LYMPHOCYTES % (AUTO) 13.5 % (20.0-45.0); MEAN CORPUSCULAR VOLUME 84 FL (80-99); MONOCYTES % (AUTO) 10.1 % (1.0-10.0); PLATELET COUNT 206 K/UL (150-450); RED BLOOD COUNT 3.79 M/UL (4.20-5.40); WHITE BLOOD COUNT 6.3 K/UL (4.8-10.8)
[2018-03-19 08:00] VITALS: BP 112/67
[2018-03-19 08:00] LABS: ANION GAP 5 mmol/L (5-15); BLOOD UREA NITROGEN 7 mg/dL (7-18); CALCIUM 8.3 MG/DL (8.5-10.1); CARBON DIOXIDE 31 MMOL/L (21-32); CHLORIDE 104 MMOL/L (98-107); CREATININE 0.6 MG/DL (0.55-1.30); POTASSIUM 3.8 MMOL/L (3.5-5.1); SODIUM 140 MMOL/L (136-145)
--- NOTE | 2018-03-19 08:57 | Orthopedic Spine Progress Note ---
Ortho Spine - Progress Note Subjective Symptoms: c/o post-op back pain, improved - as compared to pre-op Objective Vital Signs: Last 24 Hour Vital Signs Date Time Temp Pulse Resp B/P (MAP) Pulse Ox O2 Delivery O2 Flow Rate FiO2 03/19/18 08:31 98 112/67 03/19/18 08:12 Room Air 03/19/18 08:00 112/67 (82) 03/19/18 08:00 98.7 98 18 98.7 03/19/18 04:00 97.6 87 18 110/76 (87) 99 97.6 03/19/18 01:30 99.0 03/19/18 00:00 100.4 104 20 114/71 (85) 97 100.4 03/18/18 23:57 100.4 03/18/18 21:00 Room Air 03/18/18 20:08 Nasal Cannula 2.0 28 03/18/18 20:08 97 Nasal Cannula 2.0 28 03/18/18 20:00 99.7 112 20 140/73 (95) 99 99.7 03/18/18 18:00 130/74 03/18/18 16:00 97.4 90 18 131/68 (89) 68 97.4 03/18/18 14:42 97.8 97.8 03/18/18 12:00 101.2 109 18 141/95 (110) 100 101.2 03/18/18 11:05 101.4 101.4 03/18/18 10:19 102.5 03/18/18 10:15 102.5 102.5 I&O: Intake and Output 03/18/18 03/19/18 19:00 07:00 Intake Total 1660 ml 480 ml Balance 1660 ml 480 ml Intake Oral 480 ml 480 ml IV Total 1180 ml # Voids 3 4 Wound: clean, intact Drains: none Neuro Status: normal Assessment Procedure Performed: L5S1 anterior posterior fusion with laminotomy/foraminotomy L side Plan Plan: PT, pain management, discharge plan Additional Comments: monitor temp- if afeb today, ok to Waldemar Ley MD Mar 19, 2018 08:57
[2018-03-19] MEDS: Docusate 100mg cap ORAL SCH ×2 (09:17→17:43)
[2018-03-19] MEDS: cefTRIAXone 1 GM in D5W 55 ML IVPB SCH (09:17)
[2018-03-19] MEDS: Triamcinolone 0.1% 15gm Cr TOPIC SCH ×2 (09:18→17:44)
[2018-03-19] MEDS: Lisinopril 20mg tab ORAL SCH ×2 (09:18→17:43)
[2018-03-19] MEDS ORDERED: Magnesium Citrate Liq Btl ORAL ONE (10:00)
[2018-03-19] MEDS: HYDROcodone/Acetamin 10/325 tab ORAL PRN (11:07)
[2018-03-19 12:00] VITALS: BP 125/77
[2018-03-19 16:00] VITALS: BP 110/67
--- NOTE | 2018-03-19 16:03 | Internal Med Progress Note ---
Subjective Physician Name Rajeev Chand Attending Physician Waldemar Ross MD Current Medications Medications (Trade) Dose Ordered Sig/Cleopatra Route PRN Reason Start Time Stop Time Status Last Admin Dose Admin Acetaminophen (Tylenol) 650 mg Q4H PRN ORAL headache or temp>101 03/16/18 13:00 04/15/18 12:59 03/18/18 23:57 Acetaminophen/ Hydrocodone Bitart ([place] 10/325) 1 tab Q3H PRN ORAL Pain Scale (3-5) 03/16/18 19:15 03/23/18 19:14 03/19/18 11:07 Al Hydroxide/Mg Hydroxide (Mylanta) 30 ml Q6H PRN ORAL gerd 03/16/18 19:15 04/15/18 19:14 03/18/18 18:23 Amlodipine Besylate (Norvasc) 5 mg DAILY ORAL 03/17/18 09:00 04/16/18 08:59 03/17/18 08:09 Bisacodyl (Dulcolax) 10 mg Q12H PRN RECTAL Constipation 03/19/18 09:15 04/18/18 09:14 03/19/18 11:07 Ceftriaxone Sodium 1 gm/ Dextrose 55 ml @ 110 mls/hr DAILY IVPB 03/18/18 13:00 03/25/18 12:59 03/19/18 09:17 Diphenhydramine HCl (Benadryl) 25 mg Q6H PRN ORAL Itching 03/16/18 19:15 04/15/18 19:14 Docusate Sodium (Colace) 100 mg TWICE A DAY ORAL 03/16/18 18:00 04/15/18 17:59 03/19/18 09:17 Lisinopril (Prinivil) 20 mg BID ORAL 03/16/18 19:11 04/15/18 19:10 03/19/18 09:18 Lorazepam (Ativan) 0.5 mg Q6H PRN ORAL INSOMNIA OR SPASM 03/16/18 19:12 03/23/18 19:11 03/18/18 23:57 Meclizine HCl (Antivert) 25 mg Q8H PRN ORAL VERTIGO 03/16/18 19:12 04/15/18 19:11 Morphine Sulfate (Morphine Sulfate) 4 mg Q3H PRN IM Severe Breakthru Pain (>7) 03/16/18 19:04 03/23/18 19:03 03/18/18 12:01 Ondansetron HCl (Zofran) 4 mg Q4H PRN IVP Nausea & Vomiting 03/16/18 19:10 04/15/18 19:09 03/17/18 08:54 Pantoprazole (Protonix) 40 mg BEDTIME ORAL 03/16/18 21:00 04/15/18 20:59 03/18/18 20:36 Triamcinolone Acetonide (Kenalog) 1 applic BID TOPIC 03/16/18 19:29 04/15/18 19:28 03/19/18 09:18 Allergies: Coded Allergies: No Known Allergies (Unverified , 03/16/18) Subjective awake, alert, responsive, NAD, C/O constipation Objective Last Vital Signs Date Time Temp Pulse Resp B/P (MAP) Pulse Ox O2 Delivery O2 Flow Rate FiO2 03/19/18 12:06 98.7 03/19/18 12:00 100 20 125/77 (93) 100 03/19/18 08:30 Nasal Cannula 2.0 28 Laboratory Tests Test 03/19/18 06:40 White Blood Count 6.3 K/UL (4.8-10.8) Red Blood Count 3.79 M/UL (4.20-5.40) L Hemoglobin 10.7 G/DL (12.0-16.0) L Hematocrit 31.8 % (37.0-47.0) L Mean Corpuscular Volume 84 FL (80-99) Mean Corpuscular Hemoglobin 28.4 PG (27.0-31.0) Mean Corpuscular Hemoglobin Concent 33.7 G/DL (32.0-36.0) Red Cell Distribution Width 12.0 % (11.6-14.8) Platelet Count 206 K/UL (150-450) Mean Platelet Volume 6.5 FL (6.5-10.1) Neutrophils (%) (Auto) 74.0 % (45.0-75.0) Lymphocytes (%) (Auto) 13.5 % (20.0-45.0) L Monocytes (%) (Auto) 10.1 % (1.0-10.0) H Eosinophils (%) (Auto) 1.9 % (0.0-3.0) Basophils (%) (Auto) 0.5 % (0.0-2.0) Sodium Level 140 MMOL/L (136-145) Potassium Level 3.8 MMOL/L (3.5-5.1) Chloride Level 104 MMOL/L (98-107) Carbon Dioxide Level 31 MMOL/L (21-32) Anion Gap 5 mmol/L (5-15) Blood Urea Nitrogen 7 mg/dL (7-18) Creatinine 0.6 MG/DL (0.55-1.30) Estimat Glomerular Filtration Rate > 60 mL/min (>60) Glucose Level 101 MG/DL (74-106) Calcium Level 8.3 MG/DL (8.5-10.1) L Microbiology Date/Time Source Procedure Growth Status 03/18/18 13:30 Urine,Clean Catch Urine Culture - Preliminary NO GROWTH Resulted Intake and Output 03/18/18 03/19/18 19:00 07:00 Intake Total 1660 ml 480 ml Balance 1660 ml 480 ml Intake Oral 480 ml 480 ml IV Total 1180 ml # Voids 3 4 Objective General: No acute distress, awake and alert HEENT: NCAT, sclera anicteric, PERRL, EOMI. Neck: Supple, no significant jugular venous distention, Lungs: Good inspiratory effort, clear to auscultation bilaterally, no Wheeze or Rales. Heart: Regular rate and rhythm, normal S1/S2, no murmurs Abdomen: soft, nontender, nondistended. Normoactive bowel sounds.Morbid obesity. Back: Lumbar surgical incision intact dressing. Extremities: No Cyanosis , clubbing or edema. Neuro: A&O x 3, Able to move all extremities Skin: warm, no rashes or lesions Psych: Normal mood and affect Assessment/Plan Assessment/Plan 1) Lumbar stenosis Assessment & Plan: S/P L5-S1 discectomy and fusion 03/16/18. (2) Radiculopathy of leg (3) HTN (hypertension) Assessment & Plan: Continue amlodipine (4) Obesity (5) Hypokalemia Assessment & Plan: Resolved. 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 Start ceftriaxone. Plan: DC planning home soon. Rajeev Chand MD Mar 19, 2018 16:03
--- NOTE | 2018-03-19 19:45 | Progress Note ---
DATE: 03/19/2018 ACUTE PAIN MANAGEMENT PHYSICIAN PROGRESS NOTE LABORATORY STUDIES: From this morning, 03/19/2018, shows white count 6, hematocrit 32, and platelets 206. Sodium 140, potassium 3.8, chloride 104, bicarbonate 31, BUN 7, creatinine 0.6, and glucose 101. Calcium 8.3. Urinalysis from yesterday 03/18/2018 is normal. Urine culture from yesterday, preliminary no growth. OBJECTIVE: VITAL SIGNS: T-max overnight of 100.4 degrees at midnight, currently afebrile at 98.7 degrees, heart rate 98, respirations 20, blood pressure 112/67, and oxygen saturation 99% on room air. MEDICATIONS: Medication administration record reviewed. Medications include Colace, Protonix, lisinopril, triamcinolone cream, and Norvasc. Antibiotics, p.r.n medications include Tylenol, morphine, Zofran, Benadryl, [place], Mylanta, Ativan, and . I spent over 60 minutes in consultation. I saw the patient at bedside with the nurse RN, Bhakti and the patient's youngest daughter. I also spoke with the surgeon, Dr. Ross, who evaluated the patient earlier this morning and recommended a discharge to home later this afternoon. The patient has been tolerating advancing diet. She had soft diet for breakfast, and has had no nausea symptoms. She denies any abdominal bloating. Even though she denies noting flatus passing. I will bolus her with 300 mL of magnesium citrate to help promote a bowel movement. I did speak with the hospital pharmacist, Niya, to expedite dispensing of the magnesium citrate. I have also ordered p.r.n. dose of Dulcolax suppository. The patient's son dropped off a prescription for [place] at an outpatient pharmacy near the patient's home in [place]. The patient's daughter is in the pharmacy to be certain that the medications are ready for dispensing. The patient has requested a front wheel walker and a raised toilet seat for outpatient usage. The hospital will provide these. The patient was requesting a shower chair and I defer this to her bankruptcy attorney to procure, as the hospital does not have this device in supply. The patient denies any shortness of breath or chest pain. She is compliant using her incentive spirometer. She continues to ambulate aggressively. The nurse will change her dressing prior to discharge. The patient has a normal white blood cell count and I presume that the low-grade fevers are due to atelectasis and obesity. I agree with discharge trial home later today per the surgeon, Dr. Ross. The patient will follow up with Dr. Ross in the outpatient clinic in approximately 1 to 2 weeks. Jd Riley M.D. DR: MONICA JOB#: [id number] CC:
[2018-03-19 20:00] VITALS: BP 117/70
[2018-03-19] MEDS ORDERED: Tubing IV Secondary IV ONE (22:05)
[2018-03-19] MEDS ORDERED: D5 1/2NS 1000ml IV ONE (22:05)
[2018-03-19] MEDS: Morphine Sulfate 4mg/ml Inj (IV USE ONLY) IM PRN (23:48)
[2018-03-20] VITALS: BP 119/71
[2018-03-20] MEDS ORDERED: Magnesium Citrate Liq Btl ORAL SCH (05:30)
--- NOTE | 2018-03-20 06:30 | Progress Note ---
DATE: 03/20/2018 ACUTE PAIN MANAGEMENT PHYSICIAN PROGRESS NOTE OBJECTIVE: VITAL SIGNS: Afebrile. The patient has been afebrile for greater than the past 18 hours. Respirations 18, blood pressure 119/71, and oxygen saturation 97%. LABORATORY STUDIES: From yesterday, 03/19/2018 shows normal white count at 6, hematocrit 32, and platelets 206. Sodium 140, potassium 3.8, chloride 104, bicarbonate 31, BUN 7, creatinine 0.6, glucose 101, and calcium 8.3. Urinalysis on 03/18/2018 shows leukocyte esterase negative, nitrite negative, urine bacteria occasional. Microbiology shows urine culture negative, no growth to date. Final report, blood cultures x2 from 03/18/2018, no growth to date x2. MEDICATIONS: Medication administration record reviewed. Medications include Colace, Protonix, lisinopril, triamcinolone cream, Norvasc, antibiotics. As needed medications include Tylenol, morphine, Zofran, Benadryl, [place], Mylanta, Ativan, Antivert, and Dulcolax. I spent over sixty minutes in consultation over the past 24 hours, with multiple telephone calls to the nurses, Bhakti and Lupe. I saw the patient at the bedside with the charge nurse RN, Dino, and the patient's youngest daughter. The patient continues to ambulate very well. She has been afebrile for over 18 hours. In fact her last low-grade fever was 100.4 over 30 hours ago. Her normal white blood cell count is completely normal, showing no evidence for infection. Her surgical wounds, dressings were changed by the charge nurse, Bhakti yesterday, and wounds were clean and dry. The patient continues to be compliant using her incentive spirometer. Blood and urine culture results have all been normal with no growth to date. The patient was having difficulty obtaining her outpatient prescription for pain medications in the outpatient [facility]. Her son facilitated dropping off the prescription again, so that the patient should have less difficulty obtaining the Malinta prescription later this Thursday morning when she discharges to home. The patient has a normal appetite. She tolerated the magnesium citrate. She also had a Dulcolax suppository. Although there has not been any bowel movement yet, I expect 1 soon. The patient did have a slow cheondoism of bowel function, but has been advancing her diet and expelling gas without problems. I have asked the nursing team to dispense another bottle of magnesium citrate for the patient to take when she returns home to [place] later today. I also encouraged the patient to continue using her incentive spirometer at home. The patient has extended family to assist with activities of daily living. The patient will follow up with Dr. Ross's outpatient surgical clinic in approximately 2 weeks, and we will call the office if there are any further questions. At this time, I see no contraindication for discharge home to her family later today. Jd Riley M.D. DR: SYLVIA JOB#: [id number] CC:
[2018-03-20 08:00] VITALS: BP 117/78
--- NOTE | 2018-03-23 13:29 | Discharge Summary ---
Discharge Summary Hospital Course Date of Admission Mar 16, 2018 at 05:26 Date of Discharge Mar 20, 2018 at 10:15 Admitting Diagnosis Discopathy L5-S1 with radiculopathy. Reason for Hospitalization: elective surgery HPI Brittany Morales is a 47 year old female who was admitted on Mar 16, 2018 at 05:26 for Other Intervertebral Disc Degeneration, Lumbar Consultations dr Goyal- pain specialist dr Chand - IM Procedures s/p 03/16/[address] Coburn ( vascular) Anterior retroperitoneal exposure of L5-S1 vertebral interspace s/p 03/16/[address] Ross 1. Wide and radical diskectomy anteriorly at L5-S1. 2. Anterior interbody fusion using 4-WEB structural cage. 3. Use of local autograft and Signafuse allograft. 4. Use of fluoroscopy. 5. Neurodiagnostic monitoring.L5S1 anterior posterior fusion with laminotomy/ foraminotomy L side Hospital Course status post surgery course of recovery uneventful initially IV fluids status post perioperatively antibiotics pain management initially with Hemovac drain, which was discontinued on the first postoperative day 03/17 neurovascular status closely monitored initially NPO since no bowel sounds dressing intact ambulated with PT ,fall precaution maintained DVT and GI prophylaxis provided as bowel sounds returned, started on diet and slowly advanced as tolerated IV fluids discontinued when able to tolerate diet potassium replaced blood pressure management with calcium channel lori and MEAGAN inhibitor , stable voided without difficulties bowel regimen instituted postoperative fevers resolved (workup: urinalysis negative, no leukocytosis ,, chest x-ray negative, incision without signs of infection) incentive spirometry while in the bed patient was stable for discharge: neurovascularly intact, pain controlled, hemodynamically stable, dressing clean dry and intact, ambulated, tolerated diet, voided discharge instruction provided outpatient follow-up with surgeon as advised FINAL DIAGNOSES Degenerative disk disease, lumbar Lumbar stenosis Discopathy L5-S1 with radiculopathy. s/p L5S1 anterior posterior fusion with laminotomy/foraminotomy L side HTN Obesity Hypokalemia Discharge Condition Upon Discharge: stable Discharge Disposition Patient was discharged to Home () Discharge Instructions Discharge Instructions Special Instructions I have been assigned to complete a D/C Summary on this account. I was not involved in the patient management Lidia Genao PROCUREMENT INTERN Mar 23, 2018 13:29
== END 2018-03-20 10:15 | disposition home or self-care (01) | DRG 454 ==
LOC: SDSOVERFLO 05:26 → 3E 14:00
PROC: 0ST40ZZ Resection of Lumbosacral Disc, Open Approach (ICD-10-PCS; principal; 2018-03-16 08:00)
PROC: 4A11X4G Monitoring of Peripheral Nervous Electrical Activity, Intraoperative, External Approach (ICD-10-PCS; principal; 2018-03-16 08:00)
PROC: 0SG3071 Fusion of Lumbosacral Joint with Autologous Tissue Substitute, Posterior Approach, Posterior Column, Open Approach (ICD-10-PCS; principal; 2018-03-16 08:00)
PROC: 0SG30A0 Fusion of Lumbosacral Joint with Interbody Fusion Device, Anterior Approach, Anterior Column, Open Approach (ICD-10-PCS; principal; 2018-03-16 08:00)
DX: M51.17 Intervertebral disc disorders with radiculopathy, lumbosacral region (principal); M48.57XA Collapsed vertebra, not elsewhere classified, lumbosacral region, initial encounter for fracture; M48.07 Spinal stenosis, lumbosacral region; R50.82 Postprocedural fever; G89.18 Other acute postprocedural pain; E87.6 Hypokalemia; I10 Essential (primary) hypertension; E66.9 Obesity, unspecified; Z68.32 Body mass index [BMI] 32.0-32.9, adult; G47.00 Insomnia, unspecified; L30.9 Dermatitis, unspecified; R42 Dizziness and giddiness
CPT/HCPCS: 36415; 71045; 71046; 72020; 76001; 80048; 80053; 81001; 81003; 81025; 83735; 84100; 85025; 85610; 85730; 86850; 86900; 86901; 87040; 87081; 87086; 94003; 94150; 94760; J2250; J2405; J2710